=== PATIENT | male | born 1970 | race Two or more races ===

== ENCOUNTER 2021-03-26 09:29 | Emergency (ER) | payer OTHER ==
[~2021-03-26] VITALS: Ht 167.6 cm; Wt 70.3 kg
[2021-03-26] MEDS ORDERED: SKELAXIN800 MG PO (13:13)
[2021-03-26] MEDS ORDERED: NEURONTIN300 MG PO (13:13)
[2021-03-26] MEDS ORDERED: KETO10TA2 PO (13:13)
[2021-03-26] MEDS ORDERED: PERCOCET 5-3251 EACH PO (13:13)
== END 2021-03-26 14:01 ==
LOC: ER 09:29
DX: S33.5XXA Sprain of ligaments of lumbar spine, initial encounter (principal); Y92.019 Unspecified place in single-family (private) house as the place of occurrence of the external cause; X58.XXXA Exposure to other specified factors, initial encounter